=== PATIENT | male | born 1985 | race Two or more races ===

== ENCOUNTER 2022-11-04 22:39 | Emergency (ER) | payer MEDICAID ==
[~2022-11-04] VITALS: Ht 177.8 cm; Wt 81.6 kg
[2022-11-04] MEDS ORDERED: LIDOCAINE MPF 1%-EPI 1:200,000 30 ML VIAL IJ ONE (23:25)
[2022-11-04] MEDS ORDERED: IBUPROFEN 600 MG TABLET PO ONE (23:30)
[2022-11-04] MEDS ORDERED: LIDOCAINE 1%-EPI 1:100,000 20 ML VIAL TP ONE (23:30)
[2022-11-04] MEDS ORDERED: TDAP [DIPH/PERTUSSIS/TET] 0.5 ML VIAL IM ONE (23:30)
[2022-11-05] MEDS ORDERED: IBUPROFEN 600 MG TABLET ONE (00:09)
[2022-11-05] MEDS ORDERED: TDAP [DIPH/PERTUSSIS/TET] 0.5 ML VIAL IM ONE (00:10)
[2022-11-05 00:19] VITALS: BP 121/75; TEMP 98; O2SAT 100
== END 2022-11-05 00:19 | disposition home or self-care (01) ==
LOC: ER 22:40
DX: S01.511A Laceration without foreign body of lip, initial encounter (principal); W21.03XA Struck by baseball, initial encounter; Y93.64 Activity, baseball; Y92.89 Other specified places as the place of occurrence of the external cause; Y99.8 Other external cause status
CPT/HCPCS: 99283; 12013; 90471; 90715; A6403; J3490